=== PATIENT | male | born 2000 | race Caucasian/White ===

== ENCOUNTER → 2024-12-10 | Emergency (ER) | payer BC ==
[~2024-12-10] VITALS: Ht 167.6 cm; Wt 117.9 kg
== END | disposition left against medical advice (07) ==
LOC: ER 21:02
DX: S99.812A Other specified injuries of left ankle, initial encounter (principal); W01.0XXA Fall on same level from slipping, tripping and stumbling without subsequent striking against object, initial encounter; Y93.89 Activity, other specified; Y92.89 Other specified places as the place of occurrence of the external cause; Z91.013 Allergy to seafood